=== PATIENT | female | born 2000 | race Two or more races ===

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

== ENCOUNTER 2022-01-18 00:47 | Emergency (ER) | payer SELFPAY ==
[~2022-01-18] VITALS: Ht 154.9 cm; Wt 77.2 kg
[~2022-01-18 00:47] MED LIST: NAPR-683 PO; PNV1TABL25 PO
--- NOTE | 2022-01-18 02:16 | PHYS DOC ---
Past Medical History Past Surgical History: No Surgical History Adult General Chief Complaint Chief Complaint: VAGINAL BLEEDING HPI HPI The patient is a 22-year-old female, G2, P1 at approximately 7 weeks EGA by last menstrual period. She has not established care with an steel sash erector yet. She does have an upcoming appointment later this month. She presents for evaluation of scant vaginal bleeding with onset 4 to 5 hours prior to arrival. She has used one pad in total. Associated low midline abdominal cramping. No associated fevers, nausea or vomiting, upper respiratory congestion/rhinorrhea, cough, sore throat, shortness of breath or chest pain of any kind, right-sided abdominal pain, flank pain, midline back pain, dysuria, hematuria, polyuria or oliguria, unusual vaginal discharge, changes in bowel habits, pain or swelling to arms or legs. Patient is alert, pleasantly and appropriately interactive and in no acute distress with appropriate vital signs upon initial evaluation here in the emergency department. Review of Systems Review of Systems A 12 point review of systems was completed and was negative except where noted in HPI above. Allergies Allergies Allergies Coded Allergies Type Severity Reaction Last Updated Verified cinnamon Allergy Severe Rash 01/18/22 Yes colloidal oatmeal Allergy Severe Rash 01/18/22 Yes dimethicone Allergy Severe Rash 01/18/22 Yes menthol Allergy Severe Rash 01/18/22 Yes soap Allergy Severe Rash 01/18/22 Yes Physical Exam Physical Exam 22-year-old female appearing nontoxic and in no acute distress. Head is normocephalic and atraumatic. Neck is supple and nontender. Oropharynx is moist. Lungs are clear to auscultation at all stations. There is normal S1 and S2 without rubs or gallops and capillary refill is appropriate, less than 2 seconds globally. Abdomen is soft, nondistended and with mild low midline abdominal tenderness to palpation without rebound or guarding. No right-sided abdominal tenderness to palpation. Skin is warm and dry without cyanosis, clubbing or edema. Psychiatrically, patient demonstrates appropriate mood and affect and is alert. Current Patient Data Vital Signs Vital Signs Date Time Temp Pulse Resp B/P (MAP) Pulse Ox O2 Delivery O2 Flow Rate FiO2 01/18/22 01:05 98.1 87 20 155/73 (100) 98 Room Air 98.1 Lab Values Laboratory Tests Test 01/18/22 01:58 01/18/22 03:10 Hemoglobin 13.1 g/dL (12.0-15.5) Maternal Serum HCG Beta Subunit 3101 mIU/mL (0-5) H Urine Collection Type Unknown Urine Color (Auto) Light brown Urine Turbidity Hazy Urine pH (Auto) 6.0 (<5.0-8.0) Urine Specific [place] 1.013 (1.000-1.030) Urine Protein (Auto) Negative mg/dL (Negative) Urine Glucose (Auto)(UA) Negative mg/dL (Negative) Urine Ketones (Auto) Negative mg/dL (Negative) Urine Blood (Auto) Large (Negative) Urine Nitrite Negative (Negative) Urine Bilirubin (Auto) Negative (Negative) Urine Urobilinogen (Auto) Normal mg/dL (Normal) Urine Leukocyte Esterase (Auto) Small (Negative) Urine RBC Tntc /HPF (0-2) Urine WBC Occ /HPF (0-4) Urine Squamous Epithelial Cells Few /LPF Urine Bacteria Few /HPF (0-FEW) Urine Mucus Slight /LPF Laboratory Tests 01/18/22 01:58 EKG EKG [] Radiology/Procedures Radiology/Procedures EXAMINATION: US OB <14 WKS +TV, 01/18/2022 2:08 AM CLINICAL INDICATION: Vaginal bleeding in early TECHNIQUE: Grayscale, color and spectral Doppler ultrasound images of the pelvis via transabdominal and transvaginal approach. COMPARISON: None. FINDINGS: The uterus measures 9.8 x 4.8 x 4.4 cm. There is a gestational sac containing an embryo with crown-rump length of 0.59 cm, consistent with gestational age 6 weeks 3 days. Unable to detect heart beat at this time. The right ovary measures 3.1 x 2.0 x 2.1 cm. The left ovary measures 2.5 x 1.4 x 1.4 cm. There is a 2.2 x 1.2 x 1.2 cm cyst with an echogenic rim, likely a corpus luteum cyst. No adnexal mass or free fluid. IMPRESSION: Single intrauterine of uncertain viability, possibly too early to detect viability. Gestational age 6 weeks 3 days based on ultrasound. Recommend serial beta hCG and short interval follow-up ultrasound. Electronically signed by: Yoli Geronimo MD (01/18/2022 3:16 AM) [facility] DICTATED and SIGNED BY: YOLI GERONIMO MD DATE: 01/18/22 0312 Course & Med Decision Making Course & Med Decision Making Well-appearing 22-year-old female with appropriate vital signs presents for evaluation of scant vaginal bleeding of early . Has not had an ultrasound confirmatory of IUP yet. Will check labs as noted and transvaginal ultrasound and will then reevaluate. 0350: Labs and imaging as above. Patient with 6-week 3-day IUP without heartbeat visualized, indeterminate. No adnexal abnormality or free fluid. Hemoglobin appropriate. Urinalysis without infection. Rh+. Will discharge home for 48-hour follow-up quantitative hCG at her steel sash erector's office. She i s to call for an appointment later in the morning. Strict return precautions given for worsening bleeding or other new symptoms of concern. All questions have been answered. Stable for discharge. Dragon Disclaimer Dragon Disclaimer This electronic medical record was generated, in whole or in part, using a voice recognition dictation system. Departure Departure Impression: Primary Impression: Vaginal bleeding affecting early Disposition: 01 HOME / SELF CARE / HOMELESS Condition: STABLE Patient Instructions: Vaginal Bleeding During , First Trimester Additional Instructions: Follow-up very closely with your steel sash erector in the office in 48 hours for a repeat quantitative hormone level. Drink plenty of fluids and get plenty of rest. You may take a 500 mg extra strength Tylenol every 6 hours as needed for discomfort. Return to the emergency department right away as we discussed for worsening bleeding (usually defined as bleeding involving 2 or more pads an hour for 3 or more hours in a row), severely worsening abdominal pain, shortness of breath, lightheadedness or for any other new symptoms of concern. REGINA LOPEZ MD Jan 18, 2022 02:16
--- NOTE | 2022-01-18 03:18 | RAD ---
EXAMINATION: US OB <14 WKS +TV, 01/18/2022 2:08 AM CLINICAL INDICATION: Vaginal bleeding in early TECHNIQUE: Grayscale, color and spectral Doppler ultrasound images of the pelvis via transabdominal a nd transvaginal approach. COMPARISON: None. FINDINGS: The uterus measures 9.8 x 4.8 x 4.4 cm. There is a gestational sac containing an embryo with crown-ru mp length of 0.59 cm, consistent with gestational age 6 weeks 3 days. Unable to detect heart be at at this time. The right ovary measures 3.1 x 2.0 x 2.1 cm. The left ovary measures 2.5 x 1.4 x 1.4 cm. There is a 2 .2 x 1.2 x 1.2 cm cyst with an echogenic rim, likely a corpus luteum cyst. No adnexal mass or free fl uid. IMPRESSION: Single intrauterine of uncertain viability, possibly too early to detect viabil ity. Gestational age 6 weeks 3 days based on ultrasound. Recommend serial beta hCG and short interval follow-up ultrasound. Electronically signed by: Yoli Geronimo MD (01/18/2022 3:16 AM) [facility]
[2022-01-18 03:32] LABS: BACTERIA,URINE FEW /HPF (0-FEW); RBC,URINE TNTC /HPF (0-2); WBC,URINE OCC /HPF (0-4)
[2022-01-18 04:18] VITALS: BP 152/80
== END 2022-01-18 04:21 | disposition home or self-care (01) ==
LOC: ER 00:47
DX: O46.91 Antepartum hemorrhage, unspecified, first trimester (principal); Z3A.01 Less than 8 weeks gestation of pregnancy; Z88.8 Allergy status to other drugs, medicaments and biological substances; Z91.018 Allergy to other foods
CPT/HCPCS: 36415; 76801; 76817; 81001; 84702; 85018; 86850; 86900; 86901; 87086; 99285-25